=== PATIENT | female | born 1995 | race Caucasian/White ===

== ENCOUNTER 2017-06-15 23:55 | Emergency (ER) | payer OTHER ==
[~2017-06-15] VITALS: Ht 165.1 cm; Wt 86.2 kg
[2017-06-16] MEDS ORDERED: TAMIFLU75 MG PO (00:13)
[2017-06-16] MEDS ORDERED: PROAIR HFA8.5 GM INH (00:13)
[2017-06-16 00:35] LABS: INFLUENZA A ANTIGEN None Detected (None Detect); INFLUENZA B ANTIGEN None Detected (None Detect)
[2017-06-16] MEDS ORDERED: ZOFRAN4 MG PO (00:39)
[2017-06-16 00:57] VITALS: BP 103/64
== END 2017-06-16 00:59 | disposition home or self-care (01) ==
LOC: M.ERS 23:55
PROVIDERS: Nurse Practitioner Family
DX: R51 Headache (principal); J11.1 Influenza due to unidentified influenza virus with other respiratory manifestations